=== PATIENT | female | born 1975 | race Two or more races ===

== ENCOUNTER 2016-10-04 14:06 | Emergency (ER) | payer MEDICAID ==
[2016-10-04 14:36] VITALS: BP 88/57
== END 2016-10-04 15:03 | disposition home or self-care (01) ==
LOC: ER 14:23
DX: E03.9 Hypothyroidism, unspecified (principal); F32.9 Major depressive disorder, single episode, unspecified; Z76.0 Encounter for issue of repeat prescription; Z88.0 Allergy status to penicillin

== ENCOUNTER 2024-02-04 18:17 | Emergency (ER) | payer MEDICAID ==
[~2024-02-04] VITALS: Ht 147.3 cm; Wt 57.0 kg
[2024-02-04] MEDS: ONDANSETRON HCL 4 MG/2 ML VIAL IM ONE (18:36)
[2024-02-04 19:09] LABS: Basophils # (auto) 0 10 ^3/uL (0-0.2); Basophils % (auto) 0.5 % (0.0-2.0); Eosinophils # (auto) 0 10 ^3/uL (0-0.8); Eosinophils % (auto) 0.1 % (0.0-7.0); Hematocrit 45.2 % (36.0-46.0); Hemoglobin 15.5 g/dL (12.2-16.2); Lymphocytes # (auto) 0.9 10 ^3/uL (0.4-5.4); Lymphocytes % (auto) 17.3 % (10.0-50.0); Mean Corpuscular Hemoglobin 34.4 pg (28.0-32.0); Mean Corpuscular Hgb Conc. 34.2 g/dL (32.0-36.0); Mean Corpuscular Volume 100.6 fL (80.0-100.0); Monocytes # (auto) 0.3 10 ^3/uL (0-1.3); Monocytes % (auto) 5.2 % (0.0-12.0); Neutrophils % (auto) 76.9 % (37.0-80.0); Nucleated Red Blood Cells % 0.1 %; Red Cell Distribution Width 13.3 % (11.8-14.3); White Blood Cell 5.2 10^3/uL (4.4-10.8)
[2024-02-04 19:33] LABS: Alanine Aminotransferase 35 U/L (7-40); Albumin 4.1 g/dL (3.2-4.8); Alkaline Phosphatase 133 U/L (46-116); Anion Gap 9 (5-15); Aspartate Aminotransferase 26 U/L (13-40); BUN/Creatinine Ratio 13.5 (10.0-20.0); Bilirubin, Total 0.3 mg/dL (0.2-1.0); Blood Urea Nitrogen 13 mg/dL (9-23); Carbon Dioxide 24 mmol/L (20-30); Chloride 108 mmol/L (98-107); Glucose 172 mg/dL (74-106); Potassium 3.4 mmol/L (3.5-5.1); Sodium 141 mmol/L (136-145); Total Protein 8.2 g/dL (5.7-8.2)
[2024-02-04 23:11] LABS: Urine Bacteria FEW /hpf (None Seen); Urine Blood 3+ /uL (Negative); Urine Clarity Turbid (Clear); Urine Color Yellow (Yellow); Urine Hyaline Cast MANY /lpf (0 - 2); Urine Mucus FEW (None Seen); Urine Protein, UAD 3+ (Negative); Urine Specific Gravity 1.036 (1.001-1.035); Urine Urobilinogen Normal (Negative); Urine WBC 36 /hpf (0 - 5)
[2024-02-04] MEDS ORDERED: ACET5SOL5 PO (23:40)
[2024-02-04] MEDS ORDERED: NITR-87 PO (23:40)
[2024-02-04] MEDS ORDERED: DICY10CA PO (23:40)
[2024-02-04] MEDS ORDERED: ZOFR4T PO (23:40)
[2024-02-05 00:13] VITALS: BP 127/76; PULSE 104; RESP 20; TEMP 97.8; O2SAT 94
[2024-02-05] MEDS: NITROFURANTOIN 100 mg CAP PO ONE (00:28)
== END 2024-02-05 00:28 | disposition home or self-care (01) ==
LOC: ER 18:18
DX: N39.0 Urinary tract infection, site not specified (principal); F41.9 Anxiety disorder, unspecified; E07.9 Disorder of thyroid, unspecified; Z88.0 Allergy status to penicillin
CPT/HCPCS: 36415; 71045; 80053; 81001; 85025; 96372; 99284; J2405

== ENCOUNTER 2024-02-07 14:38 | Emergency (ER) | payer MEDICAID ==
[~2024-02-07] VITALS: Ht 154.9 cm; Wt 57.2 kg
[~2024-02-07 14:38] MED LIST: ACET5SOL5 PO; DICY10CA PO; NITR-87 PO; ZOFR4T PO
[2024-02-07 16:01] LABS: Urine Bacteria None Seen /hpf (None Seen)
[2024-02-07 16:27] LABS: Urine Blood 3+ /uL (Negative); Urine Budding Yeast OCCASIONAL /hpf (None Seen); Urine Clarity Turbid (Clear); Urine Color Yellow (Yellow); Urine Hyaline Cast FEW /lpf (0 - 2); Urine Mucus FEW (None Seen); Urine Protein, UAD 2+ (Negative); Urine Urobilinogen 4 mg/dL (Negative); Urine WBC 76 /hpf (0 - 5)
[2024-02-07 16:28] LABS: Basophils # (auto) 0 10 ^3/uL (0-0.2); Eosinophils # (auto) 0 10 ^3/uL (0-0.8); Eosinophils % (auto) 0.8 % (0.0-7.0); Lymphocytes # (auto) 1.1 10 ^3/uL (0.4-5.4); Monocytes # (auto) 0.6 10 ^3/uL (0-1.3)
[2024-02-07 16:29] LABS: Basophils % (auto) 0.2 % (0.0-2.0); Hemoglobin 15.1 g/dL (12.2-16.2); Lymphocytes % (auto) 18.9 % (10.0-50.0); Mean Corpuscular Hemoglobin 34.2 pg (28.0-32.0); Mean Corpuscular Hgb Conc. 34.3 g/dL (32.0-36.0); Mean Corpuscular Volume 99.5 fL (80.0-100.0); Monocytes % (auto) 10.8 % (0.0-12.0); Neutrophils % (auto) 69.3 % (37.0-80.0); Nucleated Red Blood Cells % 0.2 %; Red Blood Cells 4.42 10^6/uL (4.0-5.20); Red Cell Distribution Width 13.2 % (11.8-14.3); White Blood Cell 5.8 10^3/uL (4.4-10.8)
[2024-02-07] MEDS: SODIUM CHLORIDE 0.9% 1,000 ML IVB ONE (16:34)
[2024-02-07 16:48] LABS: Alanine Aminotransferase 90 U/L (7-40); Albumin 4.1 g/dL (3.2-4.8); Alkaline Phosphatase 127 U/L (46-116); Anion Gap 8 (5-15); Aspartate Aminotransferase 74 U/L (13-40); BUN/Creatinine Ratio 12.3 (10.0-20.0); Bilirubin, Total 0.4 mg/dL (0.2-1.0); Blood Urea Nitrogen 14 mg/dL (9-23); Carbon Dioxide 27 mmol/L (20-30); Chloride 102 mmol/L (98-107); Glucose 153 mg/dL (74-106); Potassium 2.9 mmol/L (3.5-5.1); Sodium 137 mmol/L (136-145); Total Protein 8.2 g/dL (5.7-8.2)
[2024-02-07 16:59] LABS: Lipase 159 U/L (12-53)
[2024-02-07] MEDS ORDERED: ZOFR4T PO (18:02)
[2024-02-07] MEDS ORDERED: [UNRECOGNIZED DRUG - CODE] PO (18:02)
[2024-02-07 18:12] VITALS: BP 117/77; PULSE 77; RESP 17; TEMP 98.7; O2SAT 97
== END 2024-02-07 18:14 | disposition home or self-care (01) ==
LOC: ER 14:38
DX: K58.0 Irritable bowel syndrome with diarrhea (principal); Z88.0 Allergy status to penicillin
CPT/HCPCS: 36415; 74176; 80053; 81001; 83690; 85025; 96360; 96361; 99284; J7030